=== PATIENT | male | born 1980 | race Hispanic/Latino ===

== ENCOUNTER 2018-09-23 21:41 | Inpatient (IN) | payer OTHER | END 2018-09-28 15:00 | disposition home or self-care (01) | LOC: EDH 21:41 → EDHIP 21:42 → 3CH 09-24 17:11 | DX: L02.31 Cutaneous abscess of buttock (principal); N39.0 Urinary tract infection, site not specified; E66.01 Morbid (severe) obesity due to excess calories ==

== ENCOUNTER 2021-11-05 18:43 | Inpatient (IN) | payer OTHER ==
[~2021-11-05] VITALS: Ht 172.7 cm; Wt 248.7 kg
[~2021-11-05 18:43] MED LIST: AMOX500T2 PO; FLUC200T12 PO; LISI20TA24 PO; METF-444 PO
[2021-11-05] MEDS ORDERED: 0.9%NACL 1000ML 1,000 ML IV ONE (19:30)
[2021-11-05] MEDS ORDERED: ACETAMINOPHEN 500 MG TABLET PO ONE (19:30)
[2021-11-05] MEDS ORDERED: ZOSYN 3.375GM +NS 50ML IV SCH (20:00)
[2021-11-05] MEDS ORDERED: PHARMACY COMMUNICATION MISC SCH ×2 (20:00)
[2021-11-05 20:23] LABS: BASOPHILS % (AUTO) 0.2 % (0.0-5.0); HEMATOCRIT 48.1 % (42-54); MEAN CORPUSCULAR HEMOGLOBIN 28.8 pg (27.0-33.0); MEAN CORPUSCULAR HGB CONC 33.5 g/dL (32.0-36.0); MONOCYTES % (AUTO) 5.6 % (3.0-13.0); PLATELET COUNT (AUTO) 250 K/uL (130-400); RED BLOOD CELL COUNT(AUTO) 5.59 MIL/uL (4.50-6.20); WHITE BLOOD COUNT (AUTO) 21.2 K/uL (4.8-10.8)
[2021-11-05 20:33] LABS: POTASSIUM 3.5 mmol/L (3.5-5.1)
[2021-11-05 20:37] LABS: ALBUMIN 3.4 g/dL (3.5-5.0); BILIRUBIN,TOTAL 0.7 mg/dL (0.2-1.0); TOTAL PROTEIN, SERUM 7.9 g/dL (6.0-8.3)
[2021-11-05 20:52] LABS: B-TYPE NATRIURETIC PEPTIDE 34 pg/mL (0-100)
[2021-11-05] MEDS ORDERED: VANCOMYCIN KIT 1 GM/250 ML IV.KIT IV ONE (21:30)
[2021-11-05] MEDS ORDERED: MORPHINE 4 MG SYG IV PRN (22:30)
[2021-11-05] MEDS ORDERED: ONDANSETRON 4MG INJ IV PRN (22:30)
[2021-11-05] MEDS ORDERED: LACTATED RINGERS 1000ML 2,190 ML IV ONE (22:30)
[2021-11-05] MEDS ORDERED: VANCOMYCIN PROTOCOL PER PHARMACY IV PRN (22:30)
[2021-11-05] MEDS ORDERED: MORPHINE 2 MG SYG IV PRN (22:30)
[2021-11-05] MEDS ORDERED: ACETAMINOPHEN 325 MG TAB PO PRN (22:30)
[2021-11-05] MEDS: CEFTRIAXONE 1G VIAL IV SCH (22:57)
[2021-11-05] MEDS ORDERED: 0.9%NACL 100ML 100 ML IV SCH (23:30)
[2021-11-05] MEDS ORDERED: VANCOMYCIN 500MG+NS 100ML IVPB IV SCH (23:30)
[2021-11-06 00:12] LABS: APPEARANCE,URINE CLEAR (CLEAR); BILIRUBIN,URINE SMALL (NEGATIVE); COLOR,URINE YELLOW (YELLOW); GLUCOSE, URINE (UA) NEGATIVE (NEGATIVE); KETONES,URINE 15 mg/dL (NEGATIVE); LEUKOCYTE ESTERASE ,URINE NEGATIVE (NEGATIVE); NITRATE,URINE NEGATIVE (NEGATIVE); OCCULT BLOOD,URINE NEGATIVE (NEGATIVE); PH,URINE 5.5 (5.0-8.0); PROTEIN,URINE TRACE mg/dL (NEGATIVE); UROBILINOGEN,URINE 0.2 mg/dL (0.2-1.0)
[2021-11-06 00:26] LABS: BACTERIA,URINE Few /HPF (None Seen); RBC,URINE 0-1 /HPF (0-1); WBC,URINE 0-1 /HPF (0-1)
[2021-11-06 00:27] LABS: AMORPHOUS SEDIMENT,UR Rare /LPF (None Seen)
[2021-11-06 01:20] VITALS: BP 121/66
[2021-11-06] MEDS ORDERED: AMLO-257 PO (01:36)
[2021-11-06] MEDS ORDERED: GLIM2TAB30 PO (01:36)
[2021-11-06] MEDS ORDERED: METF-444 PO (01:36)
[2021-11-06 04:00] VITALS: BP 129/56
[2021-11-06 05:00] LABS: BASOPHILS % (AUTO) 0.3 % (0.0-5.0); HEMATOCRIT 45.3 % (42-54); LYMPHOCYTES % (AUTO) 4.4 % (21.0-51.0); MEAN CORPUSCULAR HEMOGLOBIN 28.2 pg (27.0-33.0); MEAN CORPUSCULAR HGB CONC 32.5 g/dL (32.0-36.0); MEAN CORPUSCULAR VOLUME 86.9 fL (79-99); MONOCYTES % (AUTO) 4.9 % (3.0-13.0); NEUTROPHILS % (AUTO) 89.6 % (40.0-77.0); PLATELET COUNT (AUTO) 222 K/uL (130-400); RED BLOOD CELL COUNT(AUTO) 5.21 MIL/uL (4.50-6.20); WHITE BLOOD COUNT (AUTO) 19.6 K/uL (4.8-10.8)
[2021-11-06 05:27] LABS: HEMOGLOBIN A1C 8.5 % (4.0-6.0)
[2021-11-06 05:31] LABS: CREATININE 0.9 mg/dL (0.5-1.5); MAGNESIUM 1.5 mg/dL (1.80-2.40); PHOSPHORUS 3.3 mg/dL (2.5-4.9); POTASSIUM 3.8 mmol/L (3.5-5.1)
[2021-11-06] MEDS ORDERED: MAGNESIUM 2GM PREMIX 50ML 50 ML IV PRN (06:00)
[2021-11-06] MEDS ORDERED: MAGNESIUM 2GM PREMIX 50ML 50 ML IV ONE (06:03)
[2021-11-06] MEDS: INSULIN HUMULIN R 100 UNIT/ML 3ML SQ SCH ×4 (06:35→19:41)
[2021-11-06 08:00] VITALS: BP 110/53
[2021-11-06] MEDS: FAMOTIDINE 20MG VIAL IV SCH ×2 (08:49→19:36)
[2021-11-06] MEDS: ENOXAPARIN SODIUM 40 MG/0.4 ML SYRINGE SQ SCH (08:50)
[2021-11-06] MEDS ORDERED: COMPOUND IV REFRIGERATED 1 EACH IVSOLN MISC PRN (10:30)
[2021-11-06 12:00] VITALS: BP 116/60
[2021-11-06] MEDS: VANCOMYCIN 1.75 GM/250 ML BAG 250 ML IV SCH ×2 (13:50→19:37)
[2021-11-06 16:00] VITALS: BP 116/61
[2021-11-06 20:00] VITALS: BP 101/50
[2021-11-06] MEDS: NYSTATIN 15 GM POWDER TP SCH (20:27)
[2021-11-06] MEDS ORDERED: NYSTATIN 30 GM CREAM.GM. TP SCH (21:00)
[2021-11-06] MEDS: CEFTRIAXONE 1G VIAL IV SCH (22:26)
[2021-11-07] VITALS (7 sets, daily range): BP systolic 106–136; BP diastolic 47–72
[2021-11-07] MEDS: VANCOMYCIN 1.75 GM/250 ML BAG 250 ML IV SCH ×5 (00:53→21:12)
[2021-11-07] MEDS: INSULIN HUMULIN R 100 UNIT/ML 3ML SQ SCH ×5 (06:52→21:00)
[2021-11-07] MEDS: FAMOTIDINE 20MG VIAL IV SCH ×2 (09:56→21:13)
[2021-11-07] MEDS: ENOXAPARIN SODIUM 40 MG/0.4 ML SYRINGE SQ SCH (09:56)
[2021-11-07] MEDS: INSULIN GLARGINE 100 UNITS/ML 10 ML VIAL SQ SCH (10:04)
[2021-11-07 11:29] LABS: BASOPHILS % (AUTO) 0.6 % (0.0-5.0); EOSINOPHILS % (AUTO) 1.7 % (0.0-8.0); HEMATOCRIT 44.9 % (42-54); LYMPHOCYTES % (AUTO) 25.9 % (21.0-51.0); MEAN CORPUSCULAR HEMOGLOBIN 29.2 pg (27.0-33.0); MEAN CORPUSCULAR HGB CONC 33.2 g/dL (32.0-36.0); MONOCYTES % (AUTO) 11.3 % (3.0-13.0); NEUTROPHILS % (AUTO) 60.1 % (40.0-77.0); PLATELET COUNT (AUTO) 205 K/uL (130-400); RED CELL DISTRIBUTION WIDTH 13.2 % (11.0-15.5); WHITE BLOOD COUNT (AUTO) 8.9 K/uL (4.8-10.8)
[2021-11-07] MEDS: NYSTATIN 15 GM POWDER TP SCH ×2 (11:55→21:13)
[2021-11-07 12:13] LABS: CREATININE 0.8 mg/dL (0.5-1.5); POTASSIUM 4.4 mmol/L (3.5-5.1)
[2021-11-07 12:19] LABS: ALBUMIN 2.6 g/dL (3.5-5.0); BILIRUBIN,TOTAL 0.4 mg/dL (0.2-1.0)
[2021-11-07] MEDS: CEFTRIAXONE 1G VIAL IV SCH (21:13)
[2021-11-08 03:41] VITALS: BP 117/55
[2021-11-08] MEDS: VANCOMYCIN 1.75 GM/250 ML BAG 250 ML IV SCH (04:37)
[2021-11-08] MEDS: INSULIN HUMULIN R 100 UNIT/ML 3ML SQ SCH ×2 (06:32→06:33)
[2021-11-08 07:30] VITALS: BP 120/56
[2021-11-08] MEDS: INSULIN GLARGINE 100 UNITS/ML 10 ML VIAL SQ SCH (08:20)
[2021-11-08] MEDS: FAMOTIDINE 20MG VIAL IV SCH (08:29)
[2021-11-08] MEDS: NYSTATIN 15 GM POWDER TP SCH (08:30)
[2021-11-08] MEDS: ENOXAPARIN SODIUM 40 MG/0.4 ML SYRINGE SQ SCH (08:30)
[2021-11-08] MEDS ORDERED: CLIN-141 PO (09:10)
[2021-11-08 11:00] VITALS: BP 111/57
== END 2021-11-08 11:45 | disposition home or self-care (01) | DRG 872 ==
LOC: EDH 18:43 → EDHIP 18:44 → UNDOADMIN 22:24 → EDHIP 22:24 → 3BH 11-06 01:08
PROVIDERS: ADMIT Internal Medicine; ATTEND Internal Medicine
DX: A41.9 Sepsis, unspecified organism (principal); L03.311 Cellulitis of abdominal wall; E11.65 Type 2 diabetes mellitus with hyperglycemia; E11.628 Type 2 diabetes mellitus with other skin complications; I10 Essential (primary) hypertension; E66.9 Obesity, unspecified; B35.9 Dermatophytosis, unspecified; Z20.822 Contact with and (suspected) exposure to COVID-19; Z82.49 Family history of ischemic heart disease and other diseases of the circulatory system; Z83.3 Family history of diabetes mellitus; Z79.84 Long term (current) use of oral hypoglycemic drugs
CPT/HCPCS: 36415; 71045; 80048; 80053; 80202; 81001; 82948; 83036; 83605; 83735; 83880; 84100; 84145; 84484; 85025; 87040; 87088; 87635; 93970; 99291; G0378; J0696; J1650; J1815; J2543; J3370; J3475; J3490; J7030; J7120